=== PATIENT | male | born 1960 | race Caucasian/White ===

== ENCOUNTER 2020-07-25 12:02 | Emergency (ER) | payer OTHER ==
[2020-07-25 12:41] LABS: BASOPHIL 0.8 % (0-2); EOSINOPHIL 0.4 % (0-5); HCT 45.8 % (42.0-52.0); HGB 15.1 g/dl (13.2-18.0); LYMPHOCYTE 32.8 % (15-48); MCH 27.9 pg (25.0-31.0); MCV 84.5 fL (78.0-100.0); MONOCYTE 10.5 % (0-12); MPV 10.7 fL (6.0-9.5); NEUTROPHIL 54.9 % (41-80); NRBC 0; PLT 152 K/uL (150-400); RBC 5.42 M/uL (4.70-6.00); RDW 16.5 % (11.5-14.0); WBC 5.2 K/uL (4.0-10.5)
[2020-07-25 12:46] LABS: INR 1.12 (0.9-1.2); PROTHROMBIN TIME 13.7 SECONDS (11.4-13.6); PTT 28.1 SECONDS (22.2-34.7)
[2020-07-25 12:52] LABS: ALBUMIN 4.1 g/dL (3.4-5.0); BILIRUBIN - TOTAL 0.9 mg/dL (0.2-1.0); BUN/CREAT RATIO (CALC) 14.7 RATIO; CREATININE 0.75 mg/dL (0.67-1.17); GLOBULIN (CALCULATION) 3.1 g/dL; MAGNESIUM 1.6 mg/dL (1.8-2.4); POTASSIUM 3.5 mmol/L (3.5-5.1); TOTAL PROTEIN 7.2 g/dL (6.4-8.2)
[2020-07-25 12:56] LABS: PRO-BNP 11 pg/mL (<125)
[2020-07-25] MEDS ORDERED: PROTONIX 40MG T40 MG PO (15:45)
[2020-07-25] MEDS ORDERED: NITROSTAT0.4 MG SL (15:45)
[2020-12-13] MEDS ORDERED: ASPIRIN81 MG PO (16:33)
[2020-12-13] MEDS ORDERED: FENOFIBRATE160 MG PO (16:33)
[2020-12-13] MEDS ORDERED: CARDIZEM CD180 MG PO (16:33)
[2020-12-13] MEDS ORDERED: MILK THISTLE500 MG PO (16:34)
[2020-12-13] MEDS ORDERED: MAGNESIUM250 M1 PO (16:34)
[2020-12-13] MEDS ORDERED: PROTONIX 40MG T40 MG PO (16:35)
[2020-12-13] MEDS ORDERED: ZOLOFT50 MG PO (16:35)
[2020-12-13] MEDS ORDERED: PROBIOTIC1 EAC1 PO (16:35)
[2020-12-13] MEDS ORDERED: MYSOLINE50 MG PO (16:35)
[2020-12-13] MEDS ORDERED: BACTRIM DS TAB1 EAC1 PO (16:36)
[2020-12-13] MEDS ORDERED: FLOMAX0.4 MG PO (16:37)
[2020-12-19] MEDS ORDERED: IRON325 M1 PO (11:08)
== END 2020-07-25 16:12 | disposition home or self-care (01) ==
LOC: FER 12:02
PROVIDERS: Emergency Medicine
DX: R07.89 Other chest pain (principal); I10 Essential (primary) hypertension; E11.9 Type 2 diabetes mellitus without complications
CPT/HCPCS: 36415; 71045; 80053; 83735; 83880; 84145; 84484; 85025; 85610; 85730; 93005

== ENCOUNTER 2020-12-11 15:02 | Emergency (ER) | payer OTHER ==
[~2020-12-11 15:02] MED LIST: NITROSTAT0.4 MG SL; PROTONIX 40MG T40 MG PO
[2020-12-11 16:08] LABS: EOSINOPHIL 0.4 % (0-5); HGB 10.9 g/dl (13.2-18.0); LYMPHOCYTE 23.9 % (15-48); MCH 29.5 pg (25.0-31.0); MCHC 31.1 g/dL (32.0-36.0); MCV 94.9 fL (78.0-100.0); MONOCYTE 10.7 % (0-12); MPV 11.8 fL (6.0-9.5); NEUTROPHIL 63.6 % (41-80); NRBC 0; PLT 191 K/uL (150-400); RBC 3.69 M/uL (4.70-6.00); WBC 4.9 K/uL (4.0-10.5)
[2020-12-11 16:09] LABS: BUN/CREAT RATIO (CALC) 10.2 RATIO; CREATININE 1.37 mg/dL (0.67-1.17); POTASSIUM 3.8 mmol/L (3.5-5.1)
[2020-12-11 17:32] LABS: CORONAVIRUS 2019 SARS-COV-2 NEGATIVE (NEGATIVE); INFLUENZA A NAA NEGATIVE (NEGATIVE)
[2020-12-11 21:00] LABS: BILIRUBIN 1+ mg/dL (NEGATIVE); BLOOD NEGATIVE Ery/uL (NEGATIVE); CLARITY CLEAR (CLEAR); COLOR YELLOW (YELLOW); GLUCOSE (U) TRACE mg/dL (NORMAL); LEUKOCYTES TRACE Leu/uL (NEGATIVE); NITRITE NEGATIVE (NEGATIVE); PROTEIN TRACE (LOW) mg/dL (NEGATIVE); SPECIFIC GRAVITY 1.025 (1.001-1.030); pH 6.5 (5.0-9.0)
[2020-12-11 21:08] LABS: AMORPHOUS URATES CRYSTALS MODERATE; BACTERIA TRACE; MUCOUS MODERATE; SQUAMOUS EPITHELIAL CELLS RARE; URINARY WBC RARE
[2020-12-11 21:25] LABS: ALT 38 U/L (16-63); AST 32 U/L (15-37)
[2020-12-13] MEDS ORDERED: FENOFIBRATE160 MG PO (16:33)
[2020-12-13] MEDS ORDERED: CARDIZEM CD180 MG PO (16:33)
[2020-12-13] MEDS ORDERED: ASPIRIN81 MG PO (16:33)
[2020-12-13] MEDS ORDERED: MILK THISTLE500 MG PO (16:34)
[2020-12-13] MEDS ORDERED: MAGNESIUM250 M1 PO (16:34)
[2020-12-13] MEDS ORDERED: PROTONIX 40MG T40 MG PO (16:35)
[2020-12-13] MEDS ORDERED: PROBIOTIC1 EAC1 PO (16:35)
[2020-12-13] MEDS ORDERED: ZOLOFT50 MG PO (16:35)
[2020-12-13] MEDS ORDERED: MYSOLINE50 MG PO (16:35)
[2020-12-13] MEDS ORDERED: BACTRIM DS TAB1 EAC1 PO (16:36)
[2020-12-13] MEDS ORDERED: FLOMAX0.4 MG PO (16:37)
[2020-12-19] MEDS ORDERED: IRON325 M1 PO (11:08)
== END 2020-12-11 21:23 | disposition home or self-care (01) ==
LOC: FER 15:02
PROVIDERS: Nurse Practitioner Family
DX: B34.9 Viral infection, unspecified (principal); I10 Essential (primary) hypertension; E11.9 Type 2 diabetes mellitus without complications; I48.91 Unspecified atrial fibrillation; Z20.822 Contact with and (suspected) exposure to COVID-19
CPT/HCPCS: 36415; 71045; 71275; 80048; 81001; 83880; 84443; 84450; 84460; 84484; 85025; 85379; 87449; J7030; Q9967; U0002

== ENCOUNTER → 2020-12-19 | Day surgery (SDC) | payer OTHER ==
[~2020-12-19] VITALS: Ht 180.3 cm; Wt 98.0 kg
[~2020-12-19] MED LIST changes: +ASPIRIN81 MG PO; +BACTRIM DS TAB1 EAC1 PO; +CARDIZEM CD180 MG PO; +CLARITIN10 M2 PO; +COZAAR100 MG PO; +FENOFIBRATE160 MG PO; +FLOMAX0.4 MG PO; +IRON325 M1 PO; +MAGNESIUM250 M1 PO; +MILK THISTLE500 MG PO; +MYSOLINE50 MG PO; +PROBIOTIC1 EAC1 PO; +TOPAMAX25 MG PO; +ZOLOFT50 MG PO
[2020-12-19 09:15] LABS: HCT 33.3 % (42.0-52.0); HGB 10.7 g/dl (13.2-18.0); MCH 28.3 pg (25.0-31.0); MCHC 32.1 g/dL (32.0-36.0); RBC 3.78 M/uL (4.70-6.00); RDW 16.5 % (11.5-14.0); WBC 3.2 K/uL (4.0-10.5)
[2020-12-19 09:18] LABS: MCV 88.1 fL (78.0-100.0)
[2020-12-19 09:36] LABS: ALBUMIN 3.6 g/dL (3.4-5.0); BILIRUBIN - TOTAL 1.2 mg/dL (0.2-1.0); BUN/CREAT RATIO (CALC) 8.5 RATIO; CREATININE 1.06 mg/dL (0.67-1.17); GLOBULIN (CALCULATION) 2.8 g/dL; POTASSIUM 3.4 mmol/L (3.5-5.1); TOTAL PROTEIN 6.4 g/dL (6.4-8.2)
== END | disposition home or self-care (01) ==
LOC: FAS 08:29
PROVIDERS: Surgery
DX: D12.3 Benign neoplasm of transverse colon (principal); K44.9 Diaphragmatic hernia without obstruction or gangrene; K29.70 Gastritis, unspecified, without bleeding; K57.30 Diverticulosis of large intestine without perforation or abscess without bleeding; K92.1 Melena; R19.7 Diarrhea, unspecified; D64.9 Anemia, unspecified; I10 Essential (primary) hypertension; E11.9 Type 2 diabetes mellitus without complications; F41.9 Anxiety disorder, unspecified; F32.9 Major depressive disorder, single episode, unspecified; M19.90 Unspecified osteoarthritis, unspecified site; I48.91 Unspecified atrial fibrillation; N40.0 Benign prostatic hyperplasia without lower urinary tract symptoms; K25.9 Gastric ulcer, unspecified as acute or chronic, without hemorrhage or perforation; K21.9 Gastro-esophageal reflux disease without esophagitis; E78.00 Pure hypercholesterolemia, unspecified; E78.5 Hyperlipidemia, unspecified; J30.9 Allergic rhinitis, unspecified; G47.30 Sleep apnea, unspecified; E55.9 Vitamin D deficiency, unspecified; F17.210 Nicotine dependence, cigarettes, uncomplicated; Z79.82 Long term (current) use of aspirin; Z79.899 Other long term (current) drug therapy
CPT/HCPCS: 36415; 80053; 82150; 83690; J2250; J2704; J7120

== ENCOUNTER 2021-01-01 16:46 | Day surgery (SDCO) | payer OTHER ==
[~2021-01-01] VITALS: Ht 180.3 cm; Wt 98.9 kg
[~2021-01-01 16:46] MED LIST changes: -CLARITIN10 M2 PO; -COZAAR100 MG PO; -TOPAMAX25 MG PO
[2021-01-01] MEDS ORDERED: COZAAR100 MG PO (17:55)
[2021-01-01 19:34] LABS: BASOPHIL 0.3 % (0-2); EOSINOPHIL 0 % (0-5); HCT 33.4 % (42.0-52.0); HGB 10.1 g/dl (13.2-18.0); LYMPHOCYTE 21.3 % (15-48); MCH 26.9 pg (25.0-31.0); MCHC 30.2 g/dL (32.0-36.0); MCV 88.8 fL (78.0-100.0); MONOCYTE 7.8 % (0-12); MPV 10.8 fL (6.0-9.5); NRBC 0; RBC 3.76 M/uL (4.70-6.00); RDW 18.7 % (11.5-14.0); WBC 3.3 K/uL (4.0-10.5)
[2021-01-01 19:35] LABS: PLT 100 K/uL (150-400)
[2021-01-01 19:48] LABS: ALBUMIN 3.4 g/dL (3.4-5.0); BILIRUBIN - TOTAL 0.7 mg/dL (0.2-1.0); BUN/CREAT RATIO (CALC) 15.9 RATIO; CREATININE 0.82 mg/dL (0.67-1.17); GLOBULIN (CALCULATION) 2.7 g/dL; POTASSIUM 3.3 mmol/L (3.5-5.1); TOTAL PROTEIN 6.1 g/dL (6.4-8.2)
[2021-01-01 20:37] LABS: BILIRUBIN NEGATIVE (NEGATIVE); BLOOD NEGATIVE Ery/uL (NEGATIVE); CLARITY CLEAR (CLEAR); COLOR YELLOW (YELLOW); GLUCOSE (U) NORMAL (NORMAL); LEUKOCYTES NEGATIVE Leu/uL (NEGATIVE); NITRITE NEGATIVE (NEGATIVE); PROTEIN NEGATIVE (NEGATIVE); SPECIFIC GRAVITY 1.015 (1.001-1.030)
[2021-01-01] MEDS ORDERED: PROTONIX 40MG T40 MG PO (22:19)
[2021-01-01] MEDS ORDERED: TOPAMAX25 MG PO (22:20)
[2021-01-01] MEDS ORDERED: CLARITIN10 M2 PO (22:24)
[2021-01-02 06:03] LABS: BASOPHIL 0.4 % (0-2); EOSINOPHIL 0 % (0-5); HCT 30.8 % (42.0-52.0); HGB 9.3 g/dl (13.2-18.0); LYMPHOCYTE 30.4 % (15-48); MCH 27.2 pg (25.0-31.0); MCHC 30.2 g/dL (32.0-36.0); MCV 90.1 fL (78.0-100.0); MONOCYTE 9.6 % (0-12); MPV 11.6 fL (6.0-9.5); NEUTROPHIL 58.7 % (41-80); NRBC 0; RBC 3.42 M/uL (4.70-6.00); RDW 19.1 % (11.5-14.0); WBC 2.3 K/uL (4.0-10.5)
[2021-01-02 06:08] LABS: PLT 90 K/uL (150-400)
[2021-01-02 06:46] LABS: BAND 2 % (0-10); NEUTROPHILS(M) 53 % (41-80)
[2021-01-02 06:47] LABS: LYMPHOCYTE(M) 38 % (15-48); MONOCYTE(M) 7 % (0-12); PLATELET ESTIMATE DECREASED; PLATELET MORPHOLOGY NORMAL
[2021-01-02 06:49] LABS: BUN/CREAT RATIO (CALC) 15.1 RATIO; CREATININE 0.86 mg/dL (0.67-1.17); FOLIC ACID (SERUM) 2.6 ng/mL (8.6-58.9); MAGNESIUM 2.1 mg/dL (1.8-2.4); POTASSIUM 3.5 mmol/L (3.5-5.1)
[2021-01-02 07:01] LABS: IRON % SATURATION 3.4 %SAT (20-50)
[2021-01-03 06:27] LABS: BASOPHIL 1.1 % (0-2); EOSINOPHIL 0 % (0-5); HCT 31.2 % (42.0-52.0); HGB 9.3 g/dl (13.2-18.0); MCH 27.5 pg (25.0-31.0); MCHC 29.8 g/dL (32.0-36.0); MCV 92.3 fL (78.0-100.0); MONOCYTE 11.9 % (0-12); NEUTROPHIL 47.4 % (41-80); NRBC 0; PLT 98 K/uL (150-400); RBC 3.38 M/uL (4.70-6.00); RDW 19.2 % (11.5-14.0); RETICULOCYTE COUNT 4.3 % (1.0-2.0)
[2021-01-03 06:41] LABS: BUN/CREAT RATIO (CALC) 14.4 RATIO; CREATININE 0.9 mg/dL (0.67-1.17); POTASSIUM 3.8 mmol/L (3.5-5.1)
[2021-01-03 07:13] LABS: WBC 1.8 K/uL (4.0-10.5)
[2021-01-03] MEDS ORDERED: NALTREXONE 50MG50 MG PO (09:39)
[2021-01-03] MEDS ORDERED: FOLIC ACID1 MG PO (09:39)
== END 2021-01-03 12:58 | disposition home or self-care (01) ==
LOC: FMS 16:46
PROVIDERS: Nurse Practitioner; ADMIT Internal Medicine
DX: K92.1 Melena (principal); D64.9 Anemia, unspecified; Z79.82 Long term (current) use of aspirin; I10 Essential (primary) hypertension; E11.9 Type 2 diabetes mellitus without complications; Z98.61 Coronary angioplasty status; E83.42 Hypomagnesemia; E87.6 Hypokalemia; Z20.822 Contact with and (suspected) exposure to COVID-19; E78.00 Pure hypercholesterolemia, unspecified; R55 Syncope and collapse
CPT/HCPCS: 36415; 71045; 78278; 80048; 80053; 81003; 82607; 82728; 82746; 83010; 83540; 83550; 83615; 83735; 84100; 85025; 86850; 86900; 86901; A4641; A9560; C9113; G0378; J2916; J3475; J3480; U0002